=== PATIENT | female | born 2000 | race Caucasian/White ===

== ENCOUNTER 2022-03-05 11:10 | Emergency (ER) | payer SELFPAY ==
[~2022-03-05] VITALS: Ht 167.6 cm; Wt 81.0 kg
[~2022-03-05 11:10] MED LIST: ULTRAM50 M1 PO
[2022-03-05 11:50] VITALS: BP 135/105
[2022-03-05 12:00] VITALS: BP 126/107
[2022-03-05 12:25] LABS: URINE BILIRUBIN - DIPSTICK NEGATIVE (NEGATIVE); URINE BLOOD DIPSTICK NEGATIVE (NEGATIVE); URINE COLOR YELLOW; URINE GLUCOSE - DIPSTICK NEGATIVE (NEGATIVE); URINE KETONE NEGATIVE (NEGATIVE); URINE LEUK ESTERASE NEGATIVE (NEGATIVE); URINE PROTEIN - DIPSTICK NEGATIVE (NEG-TRACE); URINE UROBILINOGEN - DIPSTICK 0.2 E.U./dL (0.2)
[2022-03-05 12:28] LABS: URINE NITRITE - DIPSTICK NEGATIVE (Negative)
[2022-03-05 12:30] VITALS: BP 128/85
[2022-03-05] MEDS ORDERED: NAPROXEN500 MG PO (13:52)
[2022-03-05] MEDS ORDERED: CYCLOBENZAPRINE10 MG PO (13:52)
[2022-03-05 14:00] VITALS: BP 128/85
== END 2022-03-05 14:02 | disposition home or self-care (01) | DRG 563 ==
LOC: ED 11:10
PROVIDERS: Nurse Practitioner
DX: S39.012A Strain of muscle, fascia and tendon of lower back, initial encounter (principal); X58.XXXA Exposure to other specified factors, initial encounter